=== PATIENT | female | born 1995 | race Caucasian/White ===

== ENCOUNTER 2018-11-16 13:14 | Outpatient (CLI) | payer OTHER | END 2018-11-16 16:30 | disposition home or self-care (01) | LOC: OBT 13:14 → L-D 13:17 → OBT 16:30 | DX: O09.33 Supervision of pregnancy with insufficient antenatal care, third trimester (principal); Z3A.38 38 weeks gestation of pregnancy | CPT/HCPCS: 76818 ==

== ENCOUNTER 2018-12-01 05:55 | Inpatient (IN) | payer OTHER ==
[2018-12-01] MEDS ORDERED: BUTORPHANOL 2 MG INJ IV (07:00)
[2018-12-01] MEDS ORDERED: LIDOCAINE 1% (MPF) 30 ML INJ INJ (07:00)
[2018-12-01] MEDS ORDERED: OXYTOCIN 30 UNITS/LR 500 ML IV ×2 (07:00)
[2018-12-01] MEDS ORDERED: CARBOPROST 250 MCG INJ IM (07:00)
[2018-12-01] MEDS ORDERED: METHYLERGONOVINE 0.2 MG INJ IM (07:00)
[2018-12-01] MEDS ORDERED: MISOPROSTOL 200 MCG TAB PR (07:00)
[2018-12-01] MEDS: LACTATED RINGER'S 1,000 ML IV ×2 (08:32→16:51)
[2018-12-01 08:48] LABS: ADD MAN DIFF? NO
[2018-12-01 08:50] LABS: BASOPHILS % 0.4 % (0.0-2.0); EOSINOPHILS # 0.1 10^3/ul (0.0-0.5); EOSINOPHILS % 0.5 % (0.0-7.0); HEMATOCRIT 33.9 % (37.0-47.0); HEMOGLOBIN 10.6 g/dl (12.0-16.0); LYMPHOCYTES # 1.9 10^3/ul (0.8-2.9); LYMPHOCYTES % 17.4 % (15.0-51.0); MEAN CORPUSCULAR HEMOGLOBIN 24.8 pg (29.0-33.0); MEAN CORPUSCULAR HGB CONC 31.3 g/dl (32.0-37.0); MEAN CORPUSCULAR VOLUME 79.4 fl (82.0-101.0); MEAN PLATELET VOLUME 11.6 fl (7.4-10.4); MONOCYTE # 0.6 10^3/ul (0.3-0.9); MONOCYTES % 5.7 % (0.0-11.0); NEUTROPHIL # 8.3 10^3/ul (1.6-7.5); NEUTROPHILS % 74.7 % (39.0-77.0); PLATELET COUNT 160 10^3/UL (140-415); RED BLOOD COUNT 4.27 10^6/ul (4.20-5.40)
[2018-12-01 08:50] LABS: WHITE BLOOD COUNT 11.1 10^3/ul (4.8-10.8)
[2018-12-01 09:20] LABS: INR 0.86; PROTIME 11.8 Sec (11.9-14.9); PT RATIO 0.9
[2018-12-01 09:21] LABS: PARTIAL THROMBOPLASTIN TIME 26.3 Sec (23.0-35.0)
[2018-12-01] MEDS: MISOPROSTOL 50 MCG CAPSULE PO ×3 (09:25→17:30)
[2018-12-01 09:56] LABS: AMPHETAMINE/METHAMPHETAMINE Negative (NEGATIVE); BARBITURATES Negative (NEGATIVE); BENZODIAZEPINES Negative (NEGATIVE); CANNABINOIDS Negative (NEGATIVE); COCAINE Negative (NEGATIVE); OPIATES Negative (NEGATIVE)
[2018-12-01 21:20] LABS: RAPID PLASMA REAGIN NONREACTIVE (NR)
[2018-12-02] MEDS: MISOPROSTOL 50 MCG CAPSULE PO (01:20)
[2018-12-02] MEDS: LACTATED RINGER'S 1,000 ML IV ×5 (01:20→22:44)
[2018-12-02] MEDS ORDERED: FENTAnyl 2MCG/ML-ROPIV 0.2% 100 ML (06:23)
[2018-12-02] MEDS ORDERED: OXYTOCIN 30 UNITS/LR 500 ML BAG IV (07:00)
[2018-12-02] MEDS ORDERED: NALOXONE (0.4 MG/ML) INJ IV ×2 (07:00→22:00)
[2018-12-02] MEDS ORDERED: NALBUPHINE HCL (10 MG/1 ML) INJ IV (07:00)
[2018-12-02] MEDS ORDERED: ONDANSETRON 4 MG INJ (07:00)
[2018-12-02] MEDS ORDERED: LIDOCAINE 1.5%/EPI MPF (SDV) 30 ML VIAL (07:00)
[2018-12-02] MEDS: FENTAnyl 2MCG/ML-ROPIV 0.2% 100 ML BAG EPI (14:55)
[2018-12-02] MEDS: ACETAMINOPHEN 325 MG TAB PO (15:59)
[2018-12-02] MEDS: OXYTOCIN 30 UNITS/LR 500 ML IV (16:19)
[2018-12-02] MEDS: ONDANSETRON 4 MG INJ IV (19:36)
[2018-12-02] MEDS ORDERED: MINERAL OIL LIGHT 10 ML VIAL TOP (20:00)
[2018-12-02] MEDS: ACETAMINOPHEN 1000MG/100ML IV 100 ML IVPB (20:34)
[2018-12-02] MEDS: AMPICILLIN 2 GM/NS (PMX) 100 ML IVPB (20:37)
[2018-12-02] MEDS: GENTAMICIN 80 MG/NS (PMX) 50 ML IVPB (20:50)
[2018-12-02] MEDS ORDERED: OXYTOCIN 10 UNIT INJ ×2 (20:59)
[2018-12-02] MEDS ORDERED: OXYTOCIN 30 UNITS/LR 500 ML IV ×2 (21:00)
[2018-12-02] MEDS ORDERED: MISOPROSTOL 200 MCG TAB PR (21:00)
[2018-12-02] MEDS ORDERED: CARBOPROST 250 MCG INJ IM (21:00)
[2018-12-02] MEDS ORDERED: METHYLERGONOVINE 0.2 MG INJ IM (21:00)
[2018-12-02] MEDS ORDERED: morphine SULFATE/PF (10 MG/10 ML) INJ ×2 (21:01)
[2018-12-02] MEDS ORDERED: DIPHENHYDRAMINE 50 MG INJ IV (22:00)
[2018-12-02] MEDS ORDERED: ONDANSETRON 4 MG INJ IV (22:00)
[2018-12-02] MEDS: morphine 2 MG INJ IV (22:36)
[2018-12-03] MEDS: OXYTOCIN 30 UNITS/LR 500 ML IV ×2 (00:06→01:50)
[2018-12-03] MEDS: AMPICILLIN 1 GM/NS (PMX) 50 ML IVPB ×5 (00:30→13:00)
[2018-12-03] MEDS: KETOROLAC 30 MG INJ IV ×3 (00:48→21:28)
[2018-12-03] MEDS: LACTATED RINGER'S 1,000 ML IV ×3 (00:52→21:29)
[2018-12-03] MEDS ORDERED: BISACODYL 10 MG SUPP PR (01:00)
[2018-12-03] MEDS ORDERED: ONDANSETRON 4 MG INJ IV (01:00)
[2018-12-03] MEDS ORDERED: MISOPROSTOL 200 MCG TAB PR (01:00)
[2018-12-03] MEDS ORDERED: OXYCODONE/ACETAMINOPHEN (5/325) TAB PO (01:00)
[2018-12-03] MEDS ORDERED: METHYLERGONOVINE 0.2 MG INJ IM (01:00)
[2018-12-03] MEDS ORDERED: CARBOPROST 250 MCG INJ IM (01:00)
[2018-12-03] MEDS ORDERED: ACETAMINOPHEN 325 MG TAB PO (01:00)
[2018-12-03] MEDS ORDERED: OXYTOCIN 30 UNITS/LR 500 ML IV (01:00)
[2018-12-03] MEDS: CEFAZOLIN 1 GM/50 ML (PMX) 50 ML IVPB ×3 (01:00→16:53)
[2018-12-03] MEDS: AZITHROMYCIN 500MG/NS (PMX) 250 ML IVPB (01:13)
[2018-12-03] MEDS: CEFAZOLIN 2 GM/50 ML (PMX) 50 ML IVPB (01:14)
[2018-12-03] MEDS: GENTAMICIN 80 MG/NS (PMX) 50 ML IVPB ×3 (04:52→22:06)
[2018-12-03] MEDS: CLINDAMYCIN 900 MG/D5W (PMX) 50 ML IVPB ×4 (06:15→14:51)
[2018-12-03] MEDS: LANOLIN HPA 1 PKT TOP (06:21)
[2018-12-03 14:10] LABS: WHITE BLOOD COUNT 20.2 10^3/ul (4.8-10.8)
[2018-12-03 14:11] LABS: HEMATOCRIT 29.1 % (37.0-47.0); MEAN CORPUSCULAR HEMOGLOBIN 24.9 pg (29.0-33.0); MEAN CORPUSCULAR HGB CONC 30.9 g/dl (32.0-37.0); MEAN CORPUSCULAR VOLUME 80.6 fl (82.0-101.0); MEAN PLATELET VOLUME 12.6 fl (7.4-10.4); PLATELET COUNT 123 10^3/UL (140-415); RED BLOOD COUNT 3.61 10^6/ul (4.20-5.40); RED CELL DISTRIBUTION WIDTH 15.1 % (11.5-14.5)
[2018-12-03 14:12] LABS: ADD MAN DIFF? YES; POSITIVE DIFF @See below
[2018-12-03 14:27] LABS: ALANINE AMINOTRANSFERASE 37 IU/L (13-69); ALBUMIN 2.8 g/dl (3.3-4.9); ALKALINE PHOSPHATASE 116 IU/L (42-121); ANION GAP 5 (5-13); ASPARTATE AMINO TRANSFERASE 102 IU/L (15-46); BILIRUBIN,INDIRECT 0.6 mg/dl (0-1.1); BILIRUBIN,TOTAL 0.6 mg/dl (0.2-1.3); BLOOD UREA NITROGEN 4 mg/dl (7-20); CALCIUM 8.2 mg/dl (8.4-10.2); CARBON DIOXIDE 27 mmol/L (21-31); CHLORIDE 106 mmol/L (97-110); CREATININE 0.78 mg/dl (0.44-1.00); Estimated GFR > 60 mL/min (>60); GLUCOSE 62 mg/dl (70-220); POTASSIUM 3.7 mmol/L (3.5-5.1); SODIUM 138 mmol/L (135-144); TOTAL PROTEIN 5.6 g/dl (6.1-8.1)
[2018-12-03 16:10] LABS: ANISOCYTOSIS 1+ (0-0); BAND NEUTROPHILS #M 4.2 10^3/ul (0.0-0.6); BAND NEUTROPHILS % (M) 21 % (0-4); GIANT THROMBO% (M) 1 % (0-0); LYMPHOCYTES % (M) 5 % (15-51); MICROCYTOSIS 1+ (0-0); MONOCYTES % (M) 5 % (0-11); PLATELET ESTIMATE NORMAL; POLYCHROMASIA 2+ (0-0); SEG NEUT #M 14.8 10^3/ul (1.6-7.5); SEGMENTED NEUTROPHILS (M) % 69 % (39-77)
[2018-12-04] MEDS: CEFAZOLIN 1 GM/50 ML (PMX) 50 ML IVPB (00:41)
[2018-12-04] MEDS: OXYCODONE/ACETAMINOPHEN (5/325) TAB PO ×3 (05:52→20:20)
[2018-12-04] MEDS: GENTAMICIN 80 MG/NS (PMX) 50 ML IVPB ×2 (05:52→13:00)
[2018-12-04 07:18] LABS: ADD MAN DIFF? NO
[2018-12-04 07:31] LABS: BASOPHILS % 0.2 % (0.0-2.0); EOSINOPHILS % 0.1 % (0.0-7.0); HEMATOCRIT 28.6 % (37.0-47.0); HEMOGLOBIN 8.9 g/dl (12.0-16.0); LYMPHOCYTES # 0.9 10^3/ul (0.8-2.9); LYMPHOCYTES % 5.6 % (15.0-51.0); MEAN CORPUSCULAR HEMOGLOBIN 25.1 pg (29.0-33.0); MEAN CORPUSCULAR HGB CONC 31.1 g/dl (32.0-37.0); MEAN CORPUSCULAR VOLUME 80.8 fl (82.0-101.0); MEAN PLATELET VOLUME 12.6 fl (7.4-10.4); MONOCYTE # 0.8 10^3/ul (0.3-0.9); MONOCYTES % 4.6 % (0.0-11.0); NEUTROPHIL # 14.7 10^3/ul (1.6-7.5); NEUTROPHILS % 87.9 % (39.0-77.0); PLATELET COUNT 125 10^3/UL (140-415); RED BLOOD COUNT 3.54 10^6/ul (4.20-5.40); RED CELL DISTRIBUTION WIDTH 15.6 % (11.5-14.5)
[2018-12-04 07:31] LABS: WHITE BLOOD COUNT 16.7 10^3/ul (4.8-10.8)
[2018-12-04 07:45] LABS: ALANINE AMINOTRANSFERASE 37 IU/L (13-69); ALBUMIN 2.8 g/dl (3.3-4.9); ALBUMIN/GLOBULIN RATIO 0.96; ALKALINE PHOSPHATASE 122 IU/L (42-121); ANION GAP 3 (5-13); ASPARTATE AMINO TRANSFERASE 96 IU/L (15-46); BILIRUBIN,INDIRECT 0.6 mg/dl (0-1.1); BILIRUBIN,TOTAL 0.6 mg/dl (0.2-1.3); BLOOD UREA NITROGEN 5 mg/dl (7-20); CALCIUM 8.5 mg/dl (8.4-10.2); CARBON DIOXIDE 26 mmol/L (21-31); CHLORIDE 108 mmol/L (97-110); CREATININE 0.83 mg/dl (0.44-1.00); Estimated GFR > 60 mL/min (>60); GLUCOSE 82 mg/dl (70-220); POTASSIUM 3.8 mmol/L (3.5-5.1); SODIUM 137 mmol/L (135-144); TOTAL PROTEIN 5.7 g/dl (6.1-8.1)
[2018-12-04] MEDS: IBUPROFEN 600 MG TAB PO ×2 (12:12→21:27)
[2018-12-04] MEDS: SENNA/DOCUSATE NA (8.6MG/50MG) TAB PO (14:48)
[2018-12-04] MEDS: MAGNESIUM HYDROXIDE 30ML CUP PO (20:19)
[2018-12-05] MEDS: OXYCODONE/ACETAMINOPHEN (5/325) TAB PO (07:35)
[2018-12-05] MEDS: IBUPROFEN 600 MG TAB PO (07:35)
[2018-12-05 10:16] LABS: ADD MAN DIFF? NO
[2018-12-05 10:24] LABS: WHITE BLOOD COUNT 14.5 10^3/ul (4.8-10.8)
[2018-12-05 10:24] LABS: BASOPHILS % 0.3 % (0.0-2.0); EOSINOPHILS # 0.1 10^3/ul (0.0-0.5); EOSINOPHILS % 0.8 % (0.0-7.0); HEMATOCRIT 28.9 % (37.0-47.0); HEMOGLOBIN 9.1 g/dl (12.0-16.0); LYMPHOCYTES % 6.8 % (15.0-51.0); MEAN CORPUSCULAR HEMOGLOBIN 25.2 pg (29.0-33.0); MEAN CORPUSCULAR HGB CONC 31.5 g/dl (32.0-37.0); MEAN CORPUSCULAR VOLUME 80.1 fl (82.0-101.0); MEAN PLATELET VOLUME 11.4 fl (7.4-10.4); MONOCYTE # 0.6 10^3/ul (0.3-0.9); MONOCYTES % 4.4 % (0.0-11.0); NEUTROPHIL # 12.6 10^3/ul (1.6-7.5); NEUTROPHILS % 86.4 % (39.0-77.0); PLATELET COUNT 156 10^3/UL (140-415); RED BLOOD COUNT 3.61 10^6/ul (4.20-5.40)
== END 2018-12-05 13:45 | disposition home or self-care (01) | DRG 786 ==
LOC: OBT 05:55 → L-D 12-02 20:48 → PP1 12-03 01:45 → L-D 05:55 → OBT 06:23 → L-D 06:23
PROC: 10D00Z1 Extraction of Products of Conception, Low, Open Approach (ICD-10-PCS; principal; 2018-12-02)
PROC: 3E033VJ Introduction of Other Hormone into Peripheral Vein, Percutaneous Approach (ICD-10-PCS; 2018-12-02)
DX: O48.0 Post-term pregnancy (principal); O41.1230 Chorioamnionitis, third trimester, not applicable or unspecified; Z3A.40 40 weeks gestation of pregnancy; O76 Abnormality in fetal heart rate and rhythm complicating labor and delivery; Z37.0 Single live birth
CPT/HCPCS: 62322; 76815; 80053; 80307; 85025; 85610; 85730; 86592; 86850; 86900; 86901; 87040-91; 87070; 87086; 88307; 99464